=== PATIENT | male | born 1950 | race Caucasian/White ===

== ENCOUNTER → 2019-03-01 08:28 | Outpatient (CLI) | payer MEDICARE, SELFPAY ==
[2019-03-01 08:44] LABS: Basophils % 0.4 % (0.1-2.0); Eosinophils # 0.2 K/mm3 (0.0-0.4); Eosinophils % 2.6 % (0.1-12.0); Hemoglobin 14.9 g/dL (14.1-18.0); Lymphocytes # 1.8 K/mm3 (0.7-4.5); Lymphocytes % 22.2 % (10-50); Mean Corpuscular HGB Conc 33.1 g/dL (31.8-35.4); Mean Corpuscular Volume 96.8 fl (80-94); Mean Platelet Volume 8.7 fl (7.4-10.4); Monocytes # 0.4 K/mm3 (0.1-1.0); Monocytes % 5.3 % (1.7-9.3); Neutrophils # 5.6 K/mm3 (1.8-7.8); Neutrophils % 69.5 % (37.0-80.0); Platelet Count 166 K/mm3 (142-424); Red Blood Count 4.64 M/mm3 (4.60-6.20); Red Cell Distribution Width 13.7 % (11.5-17.5); White Blood Count 8.1 K/mm3 (4.8-10.8)
[2019-03-01 10:33] LABS: Alanine Aminotransferase 28 U/L (12-78); Albumin Level 4.1 gm/dL (3.4-5.0); Albumin/Globulin Ratio 1.5 (1.1-1.8); Alkaline Phosphatase 104 U/L (46-116); Anion Gap 10.1 mEq/L (5-15); Aspartate Amino Transferase 13 U/L (15-37); Bilirubin,Total 0.6 mg/dL (0.2-1.0); Blood Urea Nitrogen 11 mg/dL (7-18); Calcium 9.5 mg/dL (8.5-10.1); Carbon Dioxide 32 mmol/L (21.0-32.0); Chloride 107 mmol/L (98-107); Chol/HDL Ratio 3.3 (1-3.5); Cholesterol 136 mg/dL (140-200); Creatinine,Serum 1.25 mg/dL (0.70-1.30); Estimated Glomerular Filt Rate 58 ml/min (>60); GFR (African American) 70 ML/MIN (>60); Globulin 2.8 gm/dl (1.3-3.2); Glucose 106 mg/dL (74-106); HDL Cholesterol 41 mg/dL (27-67); LDL Cholesterol 83 mg/dL (0-130); Potassium 5.1 mmoL/L (3.5-5.1); Sodium 144 mmol/L (136-145); Thyroid Stimulating Hormone 3.07 uIU/ml (0.358-3.740); Total Protein,Serum 6.9 gm/dL (6.4-8.2); Triglycerides 61 mg/dL (30-200); VLDL Cholesterol 12 mg/dL (0-40)
== END ==
PROVIDERS: Visit Provider Nurse Practitioner Family
DX: I69.30 Unspecified sequelae of cerebral infarction (principal); Z79.899 Other long term (current) drug therapy
CPT/HCPCS: 36415; 80053; 80061; 83036; 84443; 85025

== ENCOUNTER → 2019-12-10 14:19 | Outpatient (CLI) | payer MEDICARE, SELFPAY ==
[2019-12-10 14:22] LABS: Adenovirus F 40/41, stool Not Detected (NotDetected); Astrovirus Not Detected (NotDetected); Campylobacter Not Detected (NotDetected); Clostridium Difficile A/B, PCR Not Detected (NotDetected); Cryptosporidium Not Detected (NotDetected); Cyclospora Cayetanesis Not Detected (NotDetected); Entamoeba histolytica Not Detected (NotDetected); Enteroaggregative E coli Not Detected (NotDetected); Enteropathogenic E coli Not Detected (NotDetected); Enterotoxigenic E coli Not Detected (NotDetected); Giardia lamblia Not Detected (NotDetected); Norovirus Not Detected (NotDetected); Plesimonas Shigalloides, PCR Not Detected (NotDetected); Rotavirus A Not Detected (NotDetected); Salmonella, PCR Not Detected (NotDetected); Sapovirus Not Detected (NotDetected); Shiga-like toxin E coli Not Detected (NotDetected); Shigella Enterovasive E coli Not Detected (NotDetected); Vibrio Cholerae Not Detected (NotDetected); Vibrio, PCR Not Detected (NotDetected); Yersinia Entercolitica, PCR Not Detected (NotDetected)
== END ==
PROVIDERS: Visit Provider Internal Medicine Adolescent Medicine
DX: R19.7 Diarrhea, unspecified (principal)
CPT/HCPCS: 87506

== ENCOUNTER → 2020-05-01 06:37 | Outpatient (CLI) | payer MEDICARE, SELFPAY ==
--- NOTE | 2020-05-01 06:43 | CT_ITS ---
PROCEDURE: CT LUNG SCREENING CLINICAL INDICATION: FORMER SMOKER quit 1 year ago 60 pack year smoking history no prior COMPARISON: No exams were available for comparison TECHNIQUE: The exam was performed on a GE Light Speed [address] scanner using 2.90 mGy CTDI. A low dose helical CT CHEST was performed on a multi-detector scanner. All CT scans at the facility use one or more dose reduction, viz: automated exposure control, ma/kV adjustment per patient size (including targeted exams where dose is matched to indication, i.e. head), or iterative reconstruction technique. The LDCT was performed in a facility that meets the criteria for the screening program. Data regarding this exam was submitted to ACR which is an approved registry. The order for this exam indicates that it came as a result of a lung cancer screening counseling shard decision-making visit that included all the elements required of such a visit including smoking cessation. The radiologist interpreting this exam meets the [facility] criteria for the LDCT lung cancer screening program. The exam is reported using the Lung-RADS classification scale and reported to the ACR registry. NOTE: This study was performed for the specific purposes of lung cancer screening and is not an alternative to diagnostic chest CT. RADIATION DOSE: CTDI vol(CT dose Index-volume) = 2.90mG DLP (Dose Length Product) = 106.55 mGcm FINDINGS: COPD with centrilobular emphysema and evidence of old granulomatous disease. Biapical scarring. There is a 4 mm nodule in the right lung base posteriorly and a 6 mm nodule in the left lower lobe anteriorly which may be fissural in nature. Additional 4 mm nodules present in the left upper lobe. OTHER FINDINGS: Mild ectasia of the ascending thoracic aorta measuring 4.3 cm. Degenerative changes thoracic spine. Coronary artery calcification. Mild thickening of the pericardium the IMPRESSION: Lung-RADS Category 3 Probably Benign Follow-up: [address] Chest without and with contrast. Other findings as described above including coronary artery calcification and mild dilatation of the ascending aorta Dictated by: David Ortiz MD 05/07/2020 07:32 David Ortiz MD in [place] 05/07/2020 07:32
[2020-05-01 07:35] LABS: Hemoglobin A1C 5.8 % (4.0-6.0)
[2020-05-01 09:29] LABS: Alanine Aminotransferase 27 U/L (12-78); Albumin Level 4.4 g/dl (3.5-5.0); Albumin/Globulin Ratio 1.7 (1.1-1.8); Alkaline Phosphatase 85 U/L (38-126); Anion Gap 14.3 mEq/L (5-15); Aspartate Amino Transferase 28 U/L (17-59); Bilirubin,Total 0.9 mg/dl (0.2-1.3); Blood Urea Nitrogen 24 mg/dl (9-20); Calcium 9.7 mg/dl (8.4-10.2); Carbon Dioxide 31 mmol/L (22.0-30.0); Chloride 102 mmol/L (98-107); Chol/HDL Ratio 3.8 (1-3.5); Cholesterol 126 mg/dl (140-200); Estimated Glomerular Filt Rate 55 ml/min (>60); GFR (African American) 66 ML/MIN (>60); Globulin 2.6 g/dL (1.3-3.2); Glucose 128 mg/dl (74-100); HDL Cholesterol 33 mg/dl (40-60); Potassium 5.3 mmoL/L (3.5-5.1); Sodium 142 mmol/L (136-145); Triglycerides 149 mg/dl (30-150); VLDL Cholesterol 30 mg/dL (0-40)
[2020-05-01 09:40] LABS: Direct LDL Cholesterol 66.59 mg/dL (100-129)
[2020-05-01 10:00] LABS: Prostate Specific Ag Screen 2.4 ng/ml (0.0-4.0)
== END ==
PROVIDERS: Nurse Practitioner Family; PCP Internal Medicine Adolescent Medicine; Visit Provider Internal Medicine Adolescent Medicine
DX: R73.03 Prediabetes (principal); I10 Essential (primary) hypertension; I69.30 Unspecified sequelae of cerebral infarction; N40.1 Benign prostatic hyperplasia with lower urinary tract symptoms; Z12.5 Encounter for screening for malignant neoplasm of prostate; Z87.891 Personal history of nicotine dependence; Z12.2 Encounter for screening for malignant neoplasm of respiratory organs
CPT/HCPCS: 36415; 80053; 80061; 83036; G0103

== ENCOUNTER → 2020-06-14 09:29 | Outpatient (CLI) | payer MEDICARE, SELFPAY ==
[2020-06-14 11:57] LABS: Chloride 106 mmol/L (98-107); Sodium 142 mmol/L (136-145)
[2020-06-14 11:58] LABS: Potassium 4.8 mmoL/L (3.5-5.1)
[2020-06-14 12:00] LABS: Anion Gap 11.8 mEq/L (5-15); Blood Urea Nitrogen 24 mg/dl (9-20); Carbon Dioxide 29 mmol/L (22.0-30.0); Estimated Glomerular Filt Rate 50 ml/min (>60); GFR (African American) 61 ML/MIN (>60)
[2020-06-14 12:01] LABS: Calcium 9.5 mg/dl (8.4-10.2); Glucose 125 mg/dl (74-100)
== END ==
PROVIDERS: Visit Provider Nurse Practitioner Family
DX: R79.89 Other specified abnormal findings of blood chemistry; I10 Essential (primary) hypertension; R73.03 Prediabetes
CPT/HCPCS: 36415; 80048

== ENCOUNTER 2021-02-02 10:41 | Emergency (ER) | payer MEDICARE, SELFPAY ==
[2021-02-02 11:13] VITALS: BP 117/83; PULSE 78; RESP 18; TEMP 37.4; O2SAT 95; BMI 25.2
--- NOTE | 2021-02-02 11:20 | HMH.EDUTC ---
[facility] [place] Impression: Bronchitis Disposition: Home, Self-Care Condition on Discharge: Good Instructions: Acute Bronchitis Additional Instructions: Start antibiotic today. Be sure to complete entire prescription even if feeling better Tylenol and ibuprofen as needed for pain or fever Humidifier/vaporizer/hot steamy shower Follow-up with primary care tomorrow. Follow-up immediately in the ER of the [facility] for new or worsening symptoms or no noticeable improvement over the next 48-72 hours. Stop smoking Inhaler every 4-6 hours as needed. Should help open airways improved cough, wheezing, shortness of breath Chapincito Romero will not cause drowsiness to use at bedtime to help stop cough so that she can get some sleep covid swab was sent to lab, call later today for results. self isolate until test results are known to be negative Prescriptions: Azithromycin [Zithromax 250mg tab] 250 mg PO DIRECTED #6 tab Prescription Printed Referrals: Princess Cardenas APRN [Primary Care Provider] - Time of Disposition: 11:24 Medical Decision Making - Jesús Inquiry Pt receiving controlled substance: No Vital Signs: 02/02/21 11:13 Temperature 99.3 F Temperature Source Tympanic Pulse Rate [Apical] 78 Respiratory Rate 18 Blood Pressure [Right Arm] 117/83 Blood Pressure Mean [Right Arm] 94 Blood Pressure Source [Right Arm] Automatic Cuff Blood Pressure Position [Right Arm] Sitting 02 Sat by Pulse Oximetry 95 Oxygen Delivery Method Room Air Orders (Tests/Meds): ORDERS Category Date Time Status Covid-19 Nasal PCR ([facility]) Routine Lab 02/02/21 11:15 [place] [facility] [place] - General Chief complaint: Urgent [facility] Stated complaint: sore throat,cough,congestion,headache Time Seen by Provider: 02/02/21 11:20 Mode of Arrival: Ambulatory Source of Information: Patient Limitations: No Limitations Description of Symptoms (Recalled from Triage Doc. by RN): cough, sore throat, sinus pain, fever HEENT Symptoms (Recalled from RN notes): Yes Resp Symptoms (Recalled from RN notes): No Skin Symptoms (Recalled from RN notes): No MS Symptoms (Recalled from RN notes): No Functional Status (Recalled from RN notes): na - History of Present Illness Provider Complaint: 70 yr old male presents for coughing up dark yellow sputum, wheezing, nasal congestion,sinus pressure, fever and sore throat, - Related Data Previous Rx's Medication Instructions Recorded Azithromycin [Zithromax 250mg 250 mg PO DIRECTED #6 tab 02/02/21 tab] Allergies Allergy/AdvReac Type Severity Reaction Status Date / Time No Known Allergies Allergy Verified 08/27/17 11:59 - Worker's Comp Is this a Worker's Comp case?: No [facility] History - Hepatitis A Screen Drug use history?: No High risk sexual behaviors?: No History of sexually transmitted infection?: No Currently employed?: No Childcare worker?: No Do you have indoor plumbing?: Yes Do you have electricity?: Yes Attestation statement:: This patient has been screened for Hepatitis A risk factors. I have reviewed the patient's past medical history: Yes - Social History Alcohol Intake: never Occupational Status: retired ROS Obtained: Yes Systems reviewed as appropriate & no additional complaints - Constitutional Constitutional: Reports system reviewed and no additional complaints, except as docu, Denies fatigue, Reports fever(s) - Eyes Eyes: Reports system reviewed and no additional complaints, except as docu, Denies eye discharge - ENT Ears, Nose, Mouth, and Throat: Reports system reviewed and no additional complaints, except as docu, Reports nasal congestion, Reports nasal discharge, Reports sinus pain, Reports sinus pressure, Reports sore throat - Cardiovascular Cardiovascular: Reports system reviewed and no additional complaints, except as docu, Denies chest pain - Respiratory Respiratory: Reports system reviewed and no additional complain
[2021-02-02 11:50] VITALS: BP 117/83; PULSE 78; RESP 18; TEMP 37.4
== END 2021-02-02 12:02 | disposition home or self-care (01) ==
PROVIDERS: Emergency Provider Nurse Practitioner Family; PCP Nurse Practitioner Family
DX: J20.9 Acute bronchitis, unspecified (principal); Z20.822 Contact with and (suspected) exposure to COVID-19
CPT/HCPCS: G0463; 99202; U0003

== ENCOUNTER 2021-08-19 11:18 | Emergency (ER) | payer MEDICARE, SELFPAY ==
--- NOTE | 2021-08-19 12:05 | HMH.EDUTC ---
[facility] [place] Dis[place] Clinical Impression: COVID-19 Disposition: Home, Self-Care Condition on Discharge: Good Instructions: DI for COVID-19 (Suspected or Confirmed ), Preventing the Spread of Coronavirus Discharge Instructions Additional Instructions: Drink plenty of fluids. Take tylenol or ibuprofen for pain or fever. Take the medications as directed. Follow up with your regular doctor. GO TO THE ER FOR ANY WORSENING SYMPTOMS The cough medication (promethazine dm) will make you drowsy, so don't drive or operate heavy machinery after taking it. Prescriptions: Albuterol Sulfate [Albuterol Sulfate Hfa] 2 puffs IH Q6HP PRN 30 Days #1 each PRN Reason: Shortness Of Breath Transmission Status: Received by [facility] Promethazine/Dextromethorphan [Promethazine-Dm Syrup] 5 ml PO Q6HP PRN #240 ml PRN Reason: Cough Transmission Status: Received by [facility] dexAMETHasone [Decadron] 6 mg PO DAILY 6 Days #6 tab Transmission Status: Received by [facility] guaiFENesin [Mucinex 600mg tablet] 1 - 2 tab PO BIDP PRN #30 tab PRN Reason: Congestion Transmission Status: Received by [facility] Azithromycin [Z-Kieran 250mg Tab*] 250 mg PO UD DOSE PK #6 tab Transmission Status: Received by [facility] Referrals: Princess Cardenas APRN [Primary Care Provider] - Time of Disposition: 13:29 Medical Decision Making - Medical Records Medical records reviewed: No: I reviewed the patient's medical records. - Jesús Inquiry Pt receiving controlled substance: No Vital Signs: 08/19/21 12:22 08/19/21 13:42 Temperature 98.9 F 98.9 F Temperature Source Oral Oral Pulse Rate 83 Pulse Rate [Right Brachial] 83 Respiratory Rate 16 19 Blood Pressure 162/101 H Blood Pressure [Right Arm] 162/101 H Blood Pressure Mean [Right Arm] 121 Blood Pressure Source Automatic Cuff Blood Pressure Source [Right Arm] Automatic Cuff 02 Sat by Pulse Oximetry 95 Oxygen Delivery Method Room Air Room Air - Lab Data Lab results reviewed: Yes: I reviewed the patient's lab results. - Radiology Data #1 Image(s): Chest Image Reviewed: Yes I reviewed the patient's radiology image, Yes I have reviewed radiologist's interpretation Preliminary Findings: Abnormal FINAL REPORT CLINICAL HISTORY: cough, congestion FINDINGS: Two views of the chest were obtained. The heart size and pulmonary vascularity are within normal limits. The mediastinum is normal. There are bilateral pulmonary opacities. There is no pneumothorax. The bony thorax is intact. IMPRESSION: Bilateral pulmonary opacities could represent pneumonia or edema. Reviewed, Interpreted and Dictated by Charanjit Chapin III, MD Transcribed by Andrés Roa Authenticated by Charanjit Chapin III, MD on 08/19/2021 01:06:53 PM [facility] HPI - General Stated complaint: covid pos 08/12 worsening symptoms Time Seen by Provider: 08/19/21 12:06 - History of Present Illness Provider Complaint: He started feeling over 1 week ago. He tested positive for covid-19 1 week ago. He states that he is here because his symptoms are not getting better and he wants to be checked for pneumonia. He denies significant shortness of breath. - Related Data Previous Rx's Medication Instructions Recorded Azithromycin [Zithromax 250mg 250 mg PO DIRECTED #6 tab 02/02/21 tab] Albuterol Sulfate [Albuterol 2 puffs IH Q6HP PRN 30 Days #1 each 08/19/21 Sulfate Hfa] Azithromycin [Z-Kieran 250mg Tab*] 250 mg PO UD DOSE PK #6 tab 08/19/21 Promethazine/Dextromethorphan 5 ml PO Q6HP PRN #240 ml 08/19/21 [Promethazine-Dm Syrup] dexAMETHasone [Decadron] 6 mg PO DAILY 6 Days #6 tab 08/19/21 guaiFENesin [Mucinex 600mg tablet] 1 - 2 tab PO BIDP PRN #30 tab 08/19/21 Allergies Allergy/AdvReac Type Severity Reaction Status Date / Time No Known Allergies Allergy Verified 08/27/17 11:59 [facility] History - Hepatitis A
[2021-08-19 12:22] VITALS: BP 162/101; PULSE 83; RESP 16; TEMP 37.2; O2SAT 95; BMI 25.1
[2021-08-19 13:42] VITALS: BP 162/101; PULSE 83; RESP 19; TEMP 37.2; O2SAT 95
== END 2021-08-19 13:40 | disposition home or self-care (01) ==
PROVIDERS: Emergency Provider Nurse Practitioner Family; PCP Nurse Practitioner Family
DX: U07.1 COVID-19 (principal)
CPT/HCPCS: 71046; 99202; G0463

== ENCOUNTER → 2022-02-05 10:21 | Outpatient (CLI) | payer MEDICARE, SELFPAY ==
--- NOTE | 2022-02-05 10:25 | US_ITS ---
FINAL REPORT TECHNIQUE: Multiple sonographic images of the kidneys were obtained in the longitudinal and transverse planes. CLINICAL HISTORY: HTN FINDINGS: The right kidney measures 9.1 cm in [id number] length. There is no hydronephrosis, mass or stone. Cortical echogenicity and cortical thickness are within normal limits. The left kidney measures 10.4 cm in eenz-zt-xbgn length. There is no hydronephrosis, mass or stone. Cortical echogenicity and cortical thickness are within normal limits. IMPRESSION: Morphologically normal kidneys bilaterally. Reviewed, Interpreted and Dictated by Tashia Cordova MD Transcribed by Andrés Roa Authenticated and . [facility]
== END ==
PROVIDERS: PCP Nurse Practitioner Family; Visit Provider Nurse Practitioner Family
DX: I10 Essential (primary) hypertension (principal)
CPT/HCPCS: 76770

== ENCOUNTER → 2022-02-11 15:26 | Outpatient (CLI) | payer MEDICARE, SELFPAY ==
--- NOTE | 2022-02-11 15:30 | CT_ITS ---
FINAL REPORT CLINICAL HISTORY: PERSONAL HISTORY OF TOBACCO USE, smoked for 61 years, smoked 2 packs per day FINDINGS: Low-Dose Chest CT Axial images were obtained from the lung apex to the mid abdomen by computed tomography. Low-dose protocol was utilized. CTDI vol (mGy): 2.90 DLP (mGy-cm): 102.90 There is no axillary adenopathy. There is no hilar or mediastinal adenopathy. The heart is proper size. There is mild ectasia of the ascending thoracic aorta measuring 4.3 cm, stable. The descending thoracic aorta measures 3.1 cm, also stable. There is no pericardial or pleural effusion. Limited images of the upper abdomen demonstrate a stable small nonobstructing renal stone in the upper pole of the left kidney. Lung window images demonstrate moderate changes of emphysema with mild pulmonary scarring. There is a calcified granuloma in the right upper lobe. There is a posterior right lower lobe nodule measuring 4 mm on image 76 which is stable. There is a stable 5 mm nodule at the left major fissure on image 39. There is a stable 3 mm anterior left upper lobe nodule on image 41. IMPRESSION: Bilateral stable nodules as described. Stable, mild ectasia of the ascending thoracic aorta. Lung RADS category 2. Recommend 12 month follow-up low-dose chest CT. Reviewed, Interpreted and Dictated by Charanjit Chapin III, MD Transcribed by Carol Dc Authenticated and [facility]
== END ==
PROVIDERS: PCP Nurse Practitioner Family; Visit Provider Nurse Practitioner Family
DX: Z87.891 Personal history of nicotine dependence (principal); Z12.2 Encounter for screening for malignant neoplasm of respiratory organs
CPT/HCPCS: 71271

== ENCOUNTER 2022-07-23 05:01 | Emergency (ER) | payer MEDICARE, SELFPAY ==
[2022-07-23 05:19] VITALS: BP 143/88; PULSE 91; RESP 18; TEMP 36.8; O2SAT 98; BMI 24.9
[2022-07-23 05:30] VITALS: BP 134/99; PULSE 90; RESP 22; O2SAT 98
--- NOTE | 2022-07-23 05:48 | HMH.EDGENADL ---
Discharge Plan Disposition Patient Disposition: Home, Self-Care Chief Complaint: PAIN Prescriptions Prescriptions: No Action promethazine-DM 120 ML syrup 5 ml PO Q6HP PRN (Reason: Cough) Qty: 240 0RF guaifenesin 600 MG tablet extended release 12hr 1 - 2 tab PO BIDP PRN (Reason: Congestion) Qty: 30 0RF atorvastatin 40 mg tablet 40 mg PO DAILY ondansetron HCl 4 mg tablet 4 mg PO Q4-6H PRN (Reason: Nausea) Label Comments: TAKE 1 TABLET BY MOUTH EVERY 6 HOURS NEEDED FOR NAUSEA amlodipine 2.5 mg tablet 2.5 mg PO DAILY aspirin 81 mg tablet,delayed release (DR/EC) 81 mg PO DAILY Label Comments: TAKE 1 TABLET BY MOUTH EVERY 12 HOURS FOR 42 DAYS POST OP acetaminophen [Pain Reliever (acetaminophen)] 500 mg tablet 1,000 mg PO TID Label Comments: TAKE 2 TABLETS BY MOUTH EVERY 8 HOURS cefadroxil 500 mg capsule 500 mg PO BID lisinopril-hydrochlorothiazide 10-12.5 mg tablet 1 tab PO Q4-6H oxycodone 5 mg tablet 5 - 10 mg PO Q4-6H PRN (Reason: Pain) Label Comments: TAKE 1 TABLET BY MOUTH EVERY 4 TO 6 HOURS FOR MODERATE PAIN cholecalciferol (vitamin D3) 50 mcg (2,000 unit) tablet 50 mcg PO DAILY Label Comments: TAKE 1 TABLET BY MOUTH ONCE DAILY Referrals Follow up/Referrals: Princess Cardenas APRN [Primary Care Provider] - See instructions Clinical Impressions Clinical Impression: Post-op pain Instructions Patient Instructions: DI for Acute Pain -- Adult Discharge ED Provider: Mal Rebollar General Adult HPI General Chief complaint: PAIN Stated complaint: 07/21/22 left knee surgery; pain Time Seen by Provider: 07/23/22 05:15 Mode of Arrival: Ambulatory Source of Information: Patient and Spouse Limitations: No Limitations Description of Symptoms (Recalled from ER Triage Doc. by RN): Patient had a knee replacement surgery on his left knee on Thursday afternoon. Since then the nerve block has worn off and patient is experiencing severe pain in his left knee. States the pain started yesterday evening but has continued throughout the night. History of Present Illness HPI narrative: pt with recent lt knee replacement pt with pain despite po meds - no other c/o at this time Onset (ago): hour(s) Location: lower extremity Severity: moderate Consistency: constant Related Data Home Medications Medication Instructions Recorded Confirmed acetaminophen 500 mg tablet (Pain 1,000 mg PO TID Pain 07/23/22 07/23/22 Reliever (acetaminophen)) amlodipine 2.5 mg tablet 2.5 mg PO DAILY htn 07/23/22 07/23/22 aspirin 81 mg tablet,delayed 81 mg PO DAILY dvt preventative 07/23/22 07/23/22 release atorvastatin 40 mg tablet 40 mg PO DAILY High cholesterol 07/23/22 07/23/22 cefadroxil 500 mg capsule 500 mg PO BID antibiotic 07/23/22 07/23/22 cholecalciferol (vitamin D3) 50 50 mcg PO DAILY Supplement 07/23/22 07/23/22 mcg (2,000 unit) tablet lisinopril 10 1 tab PO Q4-6H htn 07/23/22 07/23/22 mg-hydrochlorothiazide 12.5 mg tablet ondansetron HCl 4 mg tablet 4 mg PO Q4-6H PRN Nausea 07/23/22 07/23/22 oxycodone 5 mg tablet 5 - 10 mg PO Q4-6H PRN Pain 07/23/22 07/23/22 Previous Rx's Medication Instructions Recorded guaifenesin 600 mg tablet, 1 - 2 tab PO BIDP PRN Congestion 08/19/21 extended release 12 hr #30 tabs promethazine-DM 6.25 mg-15 mg/5 mL 5 ml PO Q6HP PRN Cough #240 mL 08/19/21 oral syrup Allergies Allergy/AdvReac Type Severity Reaction Status Date / Time No Known Allergies Allergy Verified 08/27/17 11:59 [facility] [place] Disclaimer: The information contained in this section may have been updated after the patient was seen, as this information can be updated by other users. Social History Smoking Status: Never smoker alcohol intake: never current occupational status: retired Travel in the last 8 weeks: None ROS Obtained: Yes All systems reviewed & no additional complaints except as docume
--- NOTE | 2022-07-23 06:21 | PC.NURSE ---
pt teaching regarding post op care, PRODUCTION RECORDER pump use, and medications ordered & ordered dose. Pt stated his understanding. Pt's family in room and also reviewed medications and care with her.
--- NOTE | 2022-07-23 06:23 | INFXCTL.NOTE ---
pt taken to car via wheelchair per
[2022-07-23 06:28] VITALS: BP 135/95; PULSE 90; RESP 18; TEMP 36.6; O2SAT 99
--- NOTE | 2022-07-23 06:30 | PC.NURSE ---
Patient and were given instructions on prescribed pain medication that was ordered by surgeon. Patient had a paper printed out from instructing him when to take his medication. Patient was taught how to use his shirt cleaner pump for an as needed dose as well.
== END 2022-07-23 06:32 | disposition home or self-care (01) ==
PROVIDERS: Emergency Provider Emergency Medicine; PCP Nurse Practitioner Family
DX: M25.562 Pain in left knee (principal); G89.18 Other acute postprocedural pain
CPT/HCPCS: 96372; 99284

== ENCOUNTER → 2023-02-12 12:50 | Outpatient (CLI) | payer MEDICARE, SELFPAY ==
--- NOTE | 2023-02-12 13:11 | XR_ITS ---
FINAL REPORT CLINICAL HISTORY: Left knee pain recent surgery july 2022 pain , swelling since surgery no recent injury COMPARISON: None FINDINGS: Three views of the left knee reveal no evidence of fracture or dislocation. There are postoperative changes from knee arthroplasty. The bony alignment is normal. The joint spaces are preserved. There is a small joint effusion. Vascular calcifications are noted. No acute soft tissue abnormality is seen. IMPRESSION: No acute process. Reviewed, Interpreted and Dictated by Charanjit Chapin III, MD Transcribed by Ambika Yen Authenticated and [facility]
[2023-02-12 13:16] LABS: Basophils % 0.6 % (0.1-2.0); Eosinophils # 0.3 K/mm3 (0.0-0.4); Eosinophils % 3.1 % (0.1-12.0); Hematocrit 41.8 % (42.0-52.0); Hemoglobin 13.4 g/dL (14.1-18.0); Lymphocytes # 1.9 K/mm3 (0.7-4.5); Mean Corpuscular Hemoglobin 31.8 pg (27.0-31.2); Mean Corpuscular Volume 99.4 fl (80-94); Mean Platelet Volume 9.2 fl (7.4-10.4); Monocytes # 0.4 K/mm3 (0.1-1.0); Neutrophils # 5.5 K/mm3 (1.8-7.8); Neutrophils % 68.4 % (37.0-80.0); Platelet Count 183 K/mm3 (142-424); White Blood Count 8.1 K/mm3 (4.8-10.8)
[2023-02-12 13:51] LABS: Erythrocyte Sedimentation Rate 20 mm/hr (0-20)
[2023-02-12 13:52] LABS: Hemoglobin A1C 5.8 % (4.0-6.0)
[2023-02-12 14:11] LABS: Alanine Aminotransferase 21 U/L (12-78); Albumin Level 4.6 g/dl (3.5-5.0); Albumin/Globulin Ratio 1.8 (1.1-1.8); Alkaline Phosphatase 101 U/L (38-126); Anion Gap 13.9 mEq/L (5-15); Aspartate Amino Transferase 23 U/L (17-59); Bilirubin,Total 0.4 mg/dl (0.2-1.3); Blood Urea Nitrogen 22 mg/dl (9-20); Calcium 9.5 mg/dl (8.4-10.2); Carbon Dioxide 29 mmol/L (22.0-30.0); Chloride 108 mmol/L (98-107); Creatine Kinase 63 U/L (55-170); Estimated Glomerular Filt Rate 50 ml/min (>60); GFR (African American) 60 ML/MIN (>60); Globulin 2.5 g/dL (1.3-3.2); Glucose 78 mg/dl (74-100); Magnesium 1.5 mg/dl (1.6-2.3); Potassium 4.9 mmoL/L (3.5-5.1); Sodium 146 mmol/L (136-145); Total Protein,Serum 7.1 g/dl (6.3-8.2); Uric Acid 6.5 mg/dl (3.5-8.5)
[2023-02-12 14:26] LABS: C-Reactive Protein 4.8 mg/L (0-4)
[2023-02-12 14:43] LABS: Prostate Specific Ag Screen 2.8 ng/ml (0.0-4.0); Thyroid Stimulating Hormone 1.34 uIU/mL (0.465-4.68)
== END ==
PROVIDERS: PCP Nurse Practitioner Family; Visit Provider Nurse Practitioner Family
DX: M25.562 Pain in left knee (principal); M62.838 Other muscle spasm; I10 Essential (primary) hypertension; R73.03 Prediabetes; N40.1 Benign prostatic hyperplasia with lower urinary tract symptoms; Z12.5 Encounter for screening for malignant neoplasm of prostate
CPT/HCPCS: 36415; 73562; 80053; 82550; 83036; 83735; 84443; 84550; 85025; 85651; 86140; G0103

== ENCOUNTER → 2023-04-16 08:02 | Outpatient (CLI) | payer MEDICARE, SELFPAY ==
--- NOTE | 2023-04-16 08:06 | US_ITS ---
FINAL REPORT CLINICAL HISTORY: AAA SCREENING COMPARISON: None FINDINGS: Sonographic images were obtained of the abdominal aorta. The abdominal aorta measures up to 5.3 cm in greatest dimensions. Mural thrombus is present. The common iliac arteries are within normal limits. IMPRESSION: 5.3 cm abdominal aortic aneurysm is present with mural thrombus. Reviewed, Interpreted and Dictated by Charanjit Chapin III, MD Transcribed by Irish Warner Authenticated and [facility]
--- NOTE | 2023-04-16 08:07 | CT_ITS ---
FINAL REPORT CLINICAL HISTORY: H/O TOBACCO USE current smoker 1 ppd x 65 yrs COMPARISON: 02/11/2022 FINDINGS: CT CHEST LOW DOSE SCREENING HISTORY: Screening exam for lung cancer. Current smoker, 65 pack year smoking history DOSE: CTDIvol: 2.9 mGy, DLP: 112.03 mGy*cm COMPARISON: 02/11/2022. TECHNIQUE: Axial CT without IV contrast administration using low dose protocol FINDINGS: No acute lung disease is present . There is a 5 mm nodule present contiguous with the left major fissure best seen on image #40, stable since the prior CT. There is a 3 mm anterior left upper lobe nodule seen in image #40, also stable. A left lower lobe nodule present on the prior examination of 2021 is no longer seen. There is a 2 mm left lower lobe nodule seen in image #52, also stable. The ectasia noted previously in the a sending thoracic aorta measures 4.3 cm on today's examination, also stable. Moderate coronary artery calcifications are present. There is a 3 mm nonobstructing stone seen in the upper pole of the left kidney. No pleural or pericardial effusion is seen . No adenopathy or mass lesion is present . IMPRESSION: Multiple pulmonary nodules, stable since the prior CT of February 2022. Moderate coronary artery calcifications. Stable ectasia ascending thoracic aorta. LUNG RADS CATEGORY 2 RECOMMENDATION: 12 month LDCT follow up Reviewed, Interpreted and Dictated by Charanjit Chapin III, MD Transcribed by Irish Warner Authenticated and [facility]
== END ==
PROVIDERS: PCP Nurse Practitioner Family; Visit Provider Nurse Practitioner Family
DX: Z87.891 Personal history of nicotine dependence (principal); Z12.2 Encounter for screening for malignant neoplasm of respiratory organs; Z13.6 Encounter for screening for cardiovascular disorders
CPT/HCPCS: 71271; 76705

== ENCOUNTER → 2023-04-20 13:29 | Outpatient (CLI) | payer MEDICARE, SELFPAY ==
--- NOTE | 2023-04-20 13:35 | CT_ITS ---
FINAL REPORT TECHNIQUE: Pre-and postcontrast images of the abdomen were performed by computed tomography. Extensive 3-D reconstruction images were performed. A CTA was performed. This study was performed with techniques to keep radiation doses as low as reasonably achievable (ALARA). Individualized dose reduction techniques using automated exposure control or adjustment of mA and/or kV according to the patient''s size were employed. CLINICAL HISTORY: ABDOMINAL ANEURYSM FINDINGS: ABDOMEN: Scarring is seen at the lung bases. Precontrast images demonstrate no evidence of nephrolithiasis. A small left renal cyst is present. No adrenal masses are identified. The liver, spleen and pancreas are unremarkable. There is a small umbilical hernia. CTA: There is an infrarenal abdominal aortic aneurysm measuring 5.7 cm with a large amount of mural thrombus present. This arises approximately 2.5 cm below the level of the renal arteries and extends to the aortic bifurcation. There is also a right common iliac artery aneurysm measuring 21 mm. The SMA, celiac axis, and RADHA are patent. There is no significant stenosis or calcification. The renal arteries are patent bilaterally. IMPRESSION: 5.7 cm infrarenal abdominal aortic aneurysm with large amount of mural thrombus arising approximately 2.5 cm below the level of the renal arteries and extends to the aortic bifurcation. 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 Reviewed, Interpreted and Dictated by Charanjit Chapin III, MD Transcribed by Maryse Sandy Authenticated and [facility]
== END ==
LOC: RAD 13:31
PROVIDERS: PCP Nurse Practitioner Family; Visit Provider Nurse Practitioner Family
DX: I71.40 Abdominal aortic aneurysm, without rupture, unspecified (principal)
CPT/HCPCS: 74175; Q9967

== ENCOUNTER → 2023-05-14 13:13 | Outpatient (CLI) | payer MEDICARE, SELFPAY ==
[2023-05-14 14:14] LABS: Basophils % 0.3 % (0.1-2.0); Eosinophils # 0.3 K/mm3 (0.0-0.4); Eosinophils % 2.7 % (0.1-12.0); Hematocrit 37.2 % (42.0-52.0); Hemoglobin 12.9 g/dL (14.1-18.0); Lymphocytes # 1.9 K/mm3 (0.7-4.5); Lymphocytes % 20.3 % (10-50); Mean Corpuscular HGB Conc 34.6 g/dL (31.8-35.4); Mean Corpuscular Hemoglobin 33.3 pg (27.0-31.2); Mean Corpuscular Volume 96.3 fl (80-94); Mean Platelet Volume 8.4 fl (7.4-10.4); Monocytes # 0.6 K/mm3 (0.1-1.0); Monocytes % 5.7 % (1.7-9.3); Neutrophils # 6.8 K/mm3 (1.8-7.8); Platelet Count 249 K/mm3 (142-424); Red Blood Count 3.86 M/mm3 (4.60-6.20); Red Cell Distribution Width 12.6 % (11.5-17.5); White Blood Count 9.6 K/mm3 (4.8-10.8)
[2023-05-14 14:46] LABS: Alanine Aminotransferase 23 U/L (12-78); Albumin Level 4.4 g/dl (3.5-5.0); Albumin/Globulin Ratio 1.6 (1.1-1.8); Alkaline Phosphatase 84 U/L (38-126); Anion Gap 13.6 mEq/L (5-15); Aspartate Amino Transferase 25 U/L (17-59); Bilirubin,Total 0.5 mg/dl (0.2-1.3); Blood Urea Nitrogen 16 mg/dl (9-20); Calcium 9.4 mg/dl (8.4-10.2); Carbon Dioxide 29 mmol/L (22.0-30.0); Chloride 102 mmol/L (98-107); Estimated Glomerular Filt Rate 46 ml/min (>60); GFR (African American) 56 ML/MIN (>60); Globulin 2.7 g/dL (1.3-3.2); Glucose 109 mg/dl (74-100); Potassium 4.6 mmoL/L (3.5-5.1); Sodium 140 mmol/L (136-145); Total Protein,Serum 7.1 g/dl (6.3-8.2)
== END ==
PROVIDERS: PCP Nurse Practitioner Family; Visit Provider Nurse Practitioner Family
DX: K92.1 Melena (principal); I71.40 Abdominal aortic aneurysm, without rupture, unspecified
CPT/HCPCS: 36415; 80053; 85025

== ENCOUNTER → 2023-05-15 13:11 | Outpatient (CLI) | payer MEDICARE, SELFPAY ==
[2023-05-15 17:49] LABS: Occult Blood,Stool Negative (Negative)
== END ==
PROVIDERS: PCP Nurse Practitioner Family; Visit Provider Nurse Practitioner Family
DX: K92.1 Melena (principal); I71.40 Abdominal aortic aneurysm, without rupture, unspecified
CPT/HCPCS: 82272; G0328

== ENCOUNTER → 2023-06-01 08:52 | Outpatient (CLI) | payer MEDICARE, SELFPAY ==
--- NOTE | 2023-06-01 09:02 | CT_ITS ---
FINAL REPORT TECHNIQUE: Pre-and postcontrast images of the abdomen were performed by computed tomography. Extensive 3-D reconstruction images were performed. A CTA was performed. This study was performed with techniques to keep radiation doses as low as reasonably achievable (ALARA). Individualized dose reduction techniques using automated exposure control or adjustment of mA and/or kV according to the patient''s size were employed. CLINICAL HISTORY: AAA,TOBACCO USE,HTN COMPARISON: 04/20/2023 FINDINGS: ABDOMEN AND PELVIS: There is scarring at the lung bases. Precontrast images demonstrate no evidence of nephrolithiasis. No adrenal masses are identified. The liver, spleen and pancreas are unremarkable. The appendix is normal. There are diverticula of the sigmoid colon. Bilateral inguinal hernias are present. Right inguinal hernia contains fat, left inguinal hernia contains a loop of nonobstructed small bowel. There are small bilateral renal cysts. Small umbilical hernia is present containing fat. CTA: There has been interval placement of an aortic stent graft which extends to the iliac arteries. Stent appears patent. There is no evidence of graft endoleak. Aneurysm sac measures 5.7 cm which is stable. The SMA, celiac axis, and RADHA are patent. There is no significant stenosis or calcification. The renal arteries are patent bilaterally. IMPRESSION: Interval placement of aortic stent graft which appears patent. No evidence of endoleak. Reviewed, Interpreted and Dictated by Charanjit Chapin III, MD Transcribed by Maryse Sandy Authenticated and [facility]
== END ==
PROVIDERS: PCP Nurse Practitioner Family; Visit Provider Surgery
DX: I71.43 Infrarenal abdominal aortic aneurysm, without rupture (principal); I10 Essential (primary) hypertension; Z91.81 History of falling; Z72.0 Tobacco use
CPT/HCPCS: 74174; Q9967

== ENCOUNTER 2024-04-07 06:16 | Outpatient (CLI) | payer MEDICARE, SELFPAY ==
--- NOTE | 2024-04-07 | CT_ITS ---
FINAL REPORT CLINICAL HISTORY: .current smoker 1ppd x64 years COMPARISON: 04/16/2023 FINDINGS: CTDI vol (mGy): 2.90 DLP: 109.[address] images of the chest were obtained using the low-dose protocol for screening. There is no evidence of mediastinal or hilar mass or adenopathy. No axillary mass or adenopathy is identified. On the lung window images, scattered small nodules are seen measuring up to 3 mm. These are stable from prior exam. There is no new suspicious nodule. There is a background of emphysematous change. IMPRESSION: Stable nodules measuring up to 3 mm. Lung RADS category 2 . Recommend 12 month followup low-dose CT for further evaluation. Reviewed, Interpreted and Dictated by Gene Duffy MD Transcribed by Maryse Sandy Authenticated and [facility]
== END 2024-04-07 23:59 | disposition home or self-care (01) ==
LOC: RAD 06:16
PROVIDERS: PCP Nurse Practitioner Family; Visit Provider Nurse Practitioner Family
DX: Z87.891 Personal history of nicotine dependence (principal)
CPT/HCPCS: 71271